=== PATIENT | female | born 1990 | race Caucasian/White ===

== ENCOUNTER 2016-12-01 15:02 | Emergency (ER) | payer MEDICAID ==
[~2016-12-01] VITALS: Ht 165.1 cm; Wt 60.0 kg
[~2016-12-01 15:02] MED LIST: GABA-826 PO; MIRT15TA3 PO; OXYC10TA6 PO; TOPI100T24 PO
[2016-12-01 16:04] LABS: HEMATOCRIT 38.1 % (34.6-47.8); HEMOGLOBIN 12.4 g/dL (11.7-16.4); WHITE BLOOD COUNT 12.9 x10^3/uL (3.4-10)
[2016-12-01 16:16] LABS: BLOOD UREA NITROGEN 15 mg/dL (7-18)
[2016-12-01 16:21] LABS: DIFF TOTAL CELLS COUNTED 100 CELL DIFF
[2016-12-01 16:24] LABS: VERIFY COUNTS? YES
[2016-12-01 16:34] LABS: ASPARTATE AMINO TRANSFERASE 17 U/L (15-37)
[2016-12-01 17:42] VITALS: BP 94/60
== END 2016-12-01 17:45 | disposition home or self-care (01) ==
LOC: ED 15:47
DX: O23.11 Infections of bladder in pregnancy, first trimester (principal); O99.331 Smoking (tobacco) complicating pregnancy, first trimester; Z3A.01 Less than 8 weeks gestation of pregnancy
CPT/HCPCS: 36415; 76801; 80053; 81001; 84702; 85025; 99285

== ENCOUNTER 2017-01-03 13:59 | Emergency (ER) | payer MEDICAID ==
[~2017-01-03] VITALS: Ht 165.1 cm; Wt 61.7 kg
[2017-01-03 16:40] VITALS: BP 98/62
== END 2017-01-03 16:59 | disposition home or self-care (01) ==
LOC: ED 14:58
DX: O20.0 Threatened abortion (principal); O98.311 Other infections with a predominantly sexual mode of transmission complicating pregnancy, first trimester; A59.01 Trichomonal vulvovaginitis; Z3A.13 13 weeks gestation of pregnancy; F32.9 Major depressive disorder, single episode, unspecified; F41.9 Anxiety disorder, unspecified
CPT/HCPCS: 36415; 81001; 86850; 86900; 87086; 87210; 87491; 87591; 87808; 99284; J2790

== ENCOUNTER 2017-09-20 18:53 | Emergency (ER) | payer MEDICAID ==
[~2017-09-20] VITALS: Ht 162.6 cm; Wt 65.0 kg
[2017-09-20 19:49] LABS: BASOPHILS % (AUTO) 1 % (0-1); EOSINOPHILS % (AUTO) 4 % (1-7); LYMPHOCYTES # (AUTO) 4.31 x10^3/uL (1-3.4); LYMPHOCYTES % (AUTO) 40 % (22-44); MD NO; MEAN CORPUSCULAR HGB CONC 33.8 g/dL (32.4-35.8); MEAN CORPUSCULAR VOLUME 91.8 fL (80-100); MEAN PLATELET VOLUME 7.5 fL (7.4-10.4); MONOCYTES # (AUTO) 0.78 x10^3/uL (0.2-0.8); MONOCYTES % (AUTO) 7 % (2-9); NEUTROPHILS # (AUTO) 5.28 x10^3/uL (1.8-6.8); NEUTROPHILS % (AUTO) 49 % (42-75); PLATELET COUNT 360 x10^3/uL (130-400); RED CELL DISTRIBUTION WIDTH 13.2 % (9.6-15.2)
[2017-09-20 19:58] LABS: ALBUMIN 3.8 g/dL (3.4-5.0); ANION GAP 7 mmol/L (5-15); CALCIUM 8.8 mg/dL (8.5-10.1); CHLORIDE 109 mmol/L (98-107)
[2017-09-20 20:03] LABS: ALANINE AMINOTRANSFERASE 48 U/L (12-78); ALKALINE PHOSPHATASE 79 U/L (45-117); BILIRUBIN,TOTAL 0.3 mg/dL (0.2-1.0); CREATININE 1.12 mg/dL (0.55-1.02); TOTAL PROTEIN 7.5 g/dL (6.4-8.2)
[2017-09-20 20:14] LABS: MICROSCOPIC AUTO
[2017-09-20 20:17] LABS: CLUE CELLS NONE SEEN (NONE SEEN); WET PREP WBCS MODERATE (FEW)
[2017-09-20 20:19] LABS: CULTURE INDICATED? YES
[2017-09-20 20:35] VITALS: BP 100/54
[2017-09-20] MEDS ORDERED: AZITHROMYCIN 500 MG TABLET ONE (20:47)
[2017-09-20] MEDS ORDERED: CEFTRIAXONE 250 MG ONE (20:47)
[2017-09-20] MEDS ORDERED: AZITHROMYCIN 500 MG TABLET PO ONE (21:00)
[2017-09-20] MEDS ORDERED: CEFTRIAXONE 250 MG IM ONE (21:00)
== END 2017-09-20 21:09 | disposition home or self-care (01) ==
LOC: ED 21:00
DX: N30.90 Cystitis, unspecified without hematuria (principal); A59.01 Trichomonal vulvovaginitis; G43.909 Migraine, unspecified, not intractable, without status migrainosus
CPT/HCPCS: 36415; 80053; 81001; 84703; 85025; 87086; 87210; 87491; 87591; 87808; 99284

== ENCOUNTER 2018-09-09 09:15 | Emergency (ER) | payer MEDICAID ==
[~2018-09-09] VITALS: Ht 162.6 cm; Wt 67.2 kg
[2018-09-09 10:40] LABS: HCG UR SG 1.022 (1.003-1.030); MICROSCOPIC NOT IND
[2018-09-09 10:55] LABS: CLUE CELLS PRESENT (NONE SEEN); WET PREP WBCS FEW (FEW)
[2018-09-09 11:19] LABS: CULTURE INDICATED? NO
[2018-09-09] MEDS ORDERED: AZITHROMYCIN 500 MG TABLET ONE (11:47)
[2018-09-09] MEDS ORDERED: CEFTRIAXONE 250 MG ONE (11:47)
[2018-09-09] MEDS ORDERED: LIDOCAINE-MPF 1%, 2ML ONE (11:47)
[2018-09-09] MEDS ORDERED: AZITHROMYCIN 500 MG TABLET PO ONE (12:00)
[2018-09-09] MEDS ORDERED: CEFTRIAXONE 250 MG IM ONE (12:00)
--- NOTE | 2018-09-09 12:10 | NUR ---
Discharge instructions discussed with patient, questions answered, verbalizes understanding. Prescription provided with instruction for use.
[2018-09-09 12:11] VITALS: BP 101/67
== END 2018-09-09 12:13 | disposition home or self-care (01) ==
LOC: ED 09:33
DX: A63.8 Other specified predominantly sexually transmitted diseases (principal); N76.0 Acute vaginitis
CPT/HCPCS: 81003; 81025; 87210; 87491; 87591; 87808; 96372; 99283; J0696

== ENCOUNTER 2019-09-16 13:14 | Emergency (ER) | payer MEDICAID ==
[~2019-09-16] VITALS: Ht 162.6 cm; Wt 85.5 kg
--- NOTE | 2019-09-16 13:22 | NUR ---
late entry for 1322: memory care director note: labor and delivery called, symptoms reviewed with l&d RN; per RN the patient does not need to be screened on L&D, L&D RN will assess pt in ED.
--- NOTE | 2019-09-16 13:43 | NUR ---
FIRST CONTACT WITH PT. PT C/O PURITIC RASH TO LEGS, ABD AND LOWER BACK ONSET 2 DAYS AGO; PT IS 21 WEEKS . PT DENIES ANY OTHER SX, STATES SHE HAD TRANSIENT PELVIC AND BACK PAIN LAST NIGHT BUT THIS WAS MOMENTARY. PT DENIES VAG BLEEDING/DISCHARGE, DENIES PAIN AT THIS TIME. PT'S AOX4. RESPS EVEN AND UNLABROED. BP/SPO2 MONITORS IN PLACE. CALL LIGHT WITHIN REACH. PA AT BEDSIDE TO EVALUATE AT THIS TIME.
[2019-09-16] MEDS ORDERED: DIPHENHYDRAMINE 25 MG CAPSULE ONE (13:50)
[2019-09-16] MEDS ORDERED: FAMOTIDINE 20 MG TABLET ONE (13:50)
--- NOTE | 2019-09-16 13:54 | NUR ---
pt medicated per emar. pt tolerated well.
[2019-09-16] MEDS ORDERED: DIPHENHYDRAMINE 25 MG CAPSULE PO ONE (14:00)
[2019-09-16] MEDS ORDERED: FAMOTIDINE 20 MG TABLET PO ONE (14:00)
--- NOTE | 2019-09-16 14:11 | NUR ---
LAB AT BEDSIDE AT THIS TIME.
[2019-09-16 14:38] LABS: BASOPHILS # (AUTO) 0.03 x10^3/uL (0-0.1); BASOPHILS % (AUTO) 0 % (0-1); EOSINOPHILS # (AUTO) 0.57 x10^3/uL (0-0.4); EOSINOPHILS % (AUTO) 4 % (1-7); LYMPHOCYTES % (AUTO) 20 % (22-44); MD NO; MEAN CORPUSCULAR HEMOGLOBIN 31.4 pg (27.0-34.8); MEAN CORPUSCULAR HGB CONC 33.4 g/dL (32.4-35.8); MEAN CORPUSCULAR VOLUME 93.9 fL (80-100); MEAN PLATELET VOLUME 7.6 fL (7.4-10.4); MONOCYTES # (AUTO) 0.85 x10^3/uL (0.2-0.8); MONOCYTES % (AUTO) 7 % (2-9); NEUTROPHILS # (AUTO) 8.83 x10^3/uL (1.8-6.8); NEUTROPHILS % (AUTO) 69 % (42-75); PLATELET COUNT 338 x10^3/uL (130-400); RED BLOOD COUNT 3.87 x10^6/uL (3.82-5.3); RED CELL DISTRIBUTION WIDTH 14.1 % (9.6-15.2)
[2019-09-16 14:43] LABS: ALANINE AMINOTRANSFERASE 16 U/L (12-78); ALBUMIN 2.8 g/dL (3.4-5.0); ANION GAP 8 mmol/L (5-15); CALCIUM 8.7 mg/dL (8.5-10.1); CHLORIDE 106 mmol/L (98-107); CREATININE 0.63 mg/dL (0.55-1.02)
[2019-09-16 14:45] LABS: ALKALINE PHOSPHATASE 69 U/L (45-117); BILIRUBIN,TOTAL 0.1 mg/dL (0.2-1.0); TOTAL PROTEIN 6.6 g/dL (6.4-8.2)
--- NOTE | 2019-09-16 14:46 | NUR ---
L&D PAGED FOR [facility].
[2019-09-16 15:22] VITALS: BP 103/56
== END 2019-09-16 15:24 | disposition home or self-care (01) ==
LOC: ED 13:58
DX: O99.712 Diseases of the skin and subcutaneous tissue complicating pregnancy, second trimester (principal); L20.9 Atopic dermatitis, unspecified; L50.9 Urticaria, unspecified; Z3A.21 21 weeks gestation of pregnancy
CPT/HCPCS: 36415; 80053; 85025; 99283; Q0163